=== PATIENT | female | born 1980 | race American Indian/Alaskan Native ===

== ENCOUNTER 2016-08-18 17:42 | Emergency (ER) | payer SELFPAY ==
[2016-08-18 20:01] VITALS: BP 112/70
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
== END 2016-08-18 21:30 | disposition left against medical advice (07) ==
LOC: ED 17:42
DX: M25.562 Pain in left knee (principal); Z53.21 Procedure and treatment not carried out due to patient leaving prior to being seen by health care provider

== ENCOUNTER 2017-02-05 12:47 | Emergency (ER) | payer SELFPAY ==
[2017-02-05 14:59] VITALS: BP 113/55
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
== END 2017-02-05 15:59 | disposition home or self-care (01) ==
LOC: ED 12:47
DX: R07.89 Other chest pain (principal); M54.6 Pain in thoracic spine
CPT/HCPCS: 99282

== ENCOUNTER 2017-08-17 15:08 | Outpatient (CLI) | payer MEDICAID ==
[2017-08-17] MEDS ORDERED: LACTATED RINGERS 500 ML IV ONE (15:28)
[2017-08-17 16:27] LABS: Bacteria,Urine 1+ /HPF (Negative); Bilirubin,Urine NEG (Negative); Blood,Urine NEG (Negative); Color,Urine Yellow (Yellow); Mucus,Urine FEW /HPF; Protein,Urine <15 mg/dL mg/dL (Negative); Urobilinogen,Urine < 2.0 mg/dL (<2.0); WBC,Urine < 1.0 /HPF (0.0-6.0)
[2017-08-17] MEDS ORDERED: BRETHINE SUB-Q ONE (17:38)
[2017-08-17 18:14] VITALS: BP 105/59
[2017-08-17 19:37] LABS: Hematocrit 40.3 % (30.3-42.9); Mean Corpuscular HGB Conc 35 % (30-34); Mean Corpuscular Hemoglobin 31 pg (28-32); Mean Corpuscular Volume 89 fl (79-97); Platelet Count 134 K/mm3 (140-440); Red Blood Count 4.51 M/mm3 (3.65-5.03); Red Cell Distribution Width 14.1 % (13.2-15.2)
[2017-08-17 19:53] LABS: Alanine Aminotransferase 12 units/L (7-56); Uric Acid 4.3 mg/dL (3.5-7.6)
== END 2017-08-17 20:12 | disposition home or self-care (01) ==
LOC: TRG 15:08
PROVIDERS: ATTEND Obstetrics & Gynecology
DX: O47.03 False labor before 37 completed weeks of gestation, third trimester (principal); Z3A.34 34 weeks gestation of pregnancy
CPT/HCPCS: 36415; 59025; 81001; 82565; 83615; 84450; 84460; 84550; 85027; 96360; 96372; J3105

== ENCOUNTER 2017-08-23 15:29 | Inpatient (IN) | payer MEDICAID ==
[2017-08-23] MEDS ORDERED: POLYCILLIN/NS 2 GM/100 ML 2 GM/100 ML BAG IV NR (15:45)
[2017-08-23] MEDS ORDERED: CELESTONE SOLUSPAN IM NR (15:45)
[2017-08-23] MEDS ORDERED: BRETHINE SUB-Q PRN (15:51)
[2017-08-23] MEDS ORDERED: XYLOCAINE 2% INFILTRATI ONE (15:51)
[2017-08-23] MEDS ORDERED: MINERAL OIL PO PRN (15:51)
[2017-08-23] MEDS ORDERED: ePHEDrine SULFATE IV PRN (15:51)
[2017-08-23] MEDS ORDERED: PITOCin/NS 20 UNIT/1000ML DRIP 20 UNITS/1,000 ML BAG IV SCH (16:00)
[2017-08-23] MEDS ORDERED: LACTATED RINGERS 1,000 ML IV SCH ×2 (16:00)
[2017-08-23] MEDS ORDERED: SUBLIMAZE IV PRN ×2 (16:16→17:41)
[2017-08-23] MEDS ORDERED: POLYCILLIN/NS 2 GM/100 ML 2 GM/100 ML BAG IV ONE (16:16)
[2017-08-23] MEDS ORDERED: ZOFRAN IV PRN (16:16)
[2017-08-23 16:36] LABS: Hematocrit 40.2 % (30.3-42.9); Hemoglobin 13.5 gm/dl (10.1-14.3); Mean Corpuscular HGB Conc 34 % (30-34); Mean Corpuscular Hemoglobin 30 pg (28-32); Mean Corpuscular Volume 90 fl (79-97); Platelet Count 131 K/mm3 (140-440); Red Blood Count 4.46 M/mm3 (3.65-5.03); Red Cell Distribution Width 14.2 % (13.2-15.2)
[2017-08-23] MEDS ORDERED: CELESTONE SOLUSPAN IM SCH (17:00)
--- NOTE | 2017-08-23 17:05 | History and Physical Report ---
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 of genital herpes: no Rash, Viral, or Febrile illness since last LMP? no Varicella/Chicken Pox Status: Previous Disease Genetic History ADVANCED MATERNAL AGE Congenital Heart Defect: Mom: no Nasreen Disease: Mom: no Thalassemia Mom: no Neural Tube Defect Mom: no Down's Syndrome Mom: no José-Sachs Mom: no Sickle Cell Disease/Trait Mom: no Hemophilia Mom: no Muscular Dystrophy Mom: no Cystic Fibrosis Mom: no Carina Chorea Mom: no Mental Retardation Mom: no Fragile X Mom: no Other Genetic/Chromosomal Disorder Mom: no Child w/other defect Mom: no Enviromental Exposures Xray Exposure: no Medication, drug, or alcohol use since LMP: no Chemical/Other Exposure: no Exposure to Cat Liter: no Hx of Parvovirus (Fifth Disease): no Occupational Exposure to Children: none Active Medications (reviewed today): ZOFRAN ODT 8 MG ORAL TABLET DISINTEGRATING (ONDANSETRON) 1 po q12hrs prn Current Allergies (reviewed today): No known allergies Past History - Obstetrical History Expected Date of Delivery: 09/23/17 Actual Gestation: 35 Week(s) 4 Day(s) : 2 Para: 1 Hx # Term Pregnancies: 1 Number of Living Children: 1 Medications and Allergies Allergies Allergy/AdvReac Type Severity Reaction Status Date / Time No Known Allergies Allergy Verified 08/18/16 19:57 Active Meds: Active Medications Betamethasone Acet/Betameth SodPhos (Celestone Soluspan) 12 mg IM Q24HR KAYLA Ephedrine Sulfate (Ephedrine Sulfate) 10 mg IV Q2M PRN PRN Reason: Hypotension Fentanyl (Sublimaze) 100 mcg IV Q2H PRN PRN Reason: Labor Pain Ampicillin Sodium (Polycillin/Ns 2 Gm/100 Ml) 2 gm in 100 mls @ 100 mls/hr IV ONCE NR Stop: 08/23/17 18:00 Lactated Ringer's (Lactated Ringers) 1,000 mls @ 125 mls/hr IV DIRECT KAYLA Ampicillin Sodium (Ampicillin/Ns 1 Gm/50 Ml) 1 gm in 50 mls @ 100 mls/hr IV Q4H KAYLA; Protocol Lactated Ringer's (Lactated Ringers) 1,000 mls @ 125 mls/hr IV DIRECT KAYLA Oxytocin/Sodium Chloride (Pitocin/Ns 20 Unit/1000ml Drip) 20 units in 1,000 mls @ 125 mls/hr IV DIRECT KAYLA Mineral Oil (Mineral Oil) 30 ml PO QHS PRN PRN Reason: Constipation Ondansetron HCl (Zofran) 4 mg IV Q8H PRN PRN Reason: Nausea And Vomiting Terbutaline Sulfate (Brethine) 0.25 mg SUB-Q ONCE PRN PRN Reason: Hyperstimulation/Hypertonicity - Vital Signs Vital signs: Vital Signs Temp Pulse Resp BP Pulse Ox 98.3 F 84 20 122/68 98 08/23/17 15:37 08/23/17 15:37 08/23/17 15:37 08/23/17 15:37 08/23/17 15:37 Temp Pulse Resp BP Pulse Ox 98.3 F 74 20 116/62 97 08/23/17 15:37 08/23/17 16:51 08/23/17 15:37 08/23/17 16:50 08/23/17 16:51 - Physical Exam Breasts: Positive: deferred Cardiovascular: Regular rate, Normal S1, Normal S2 Lungs: Positive: Clear to auscultation, Normal air movement Abdomen: Positive: normal appearance, soft, normal bowel sounds. Negative: distention, tenderness Genitourinary (Female): Positive: normal external genitalia, normal perenium Vulva: both: normal Vagina: Positive: normal moisture. Negative: discharge Cervix: Negative: lesion, discharge Uterus: Positive: normal size, normal contour Adnexa: both: normal Anus/Rectum: Positive: normal perianal skin, heme negative. 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 GBS unknown HBsAg Screen Negative Negative *1 RPR Non Reactive Non Reactive *2 Rubella Antibodies, IgG 2.08 index Immune >0.99 *3 Non-immune <0.90 Equivocal 0.90 - 0.99 Immune >0.99 ABO Grouping O *4 Rh Factor Negative *5 Pt received Rhogam 07-04-17 Please note: Prior records for this patient's ABO / Rh type are not available for additional verification. Antibody Screen Negative Negative *6 WBC [H] 17.4 x10E3/uL 3.4-10.8 *7 RBC 3.97 x10E6/uL 3.77-5.28 *8 Hemoglobin 12.5 g/dL 11.1-15.9 *9 Hematocrit 36.4 % 34.0-46.6 *10 MCV 92 fL 79-97 *11 MCH 31.5 pg 26.6-33.0 *12 MCHC 34.3 g/dL 31.5-35.7 *13 RDW 14.1 % 12.3-15.4 *14 Platelets 213 x10E3/uL 150-379 *15 Neutrophils 80 % Not Estab. *16 Lymphs 11 % Not Estab. *17 Monocytes 8 % Not Estab. *18 Eos 1 % Not Estab. *19 Basos 0 % Not Estab. *20 ! Immature Cells <No Reported Value> *21 Neutrophils (Absolute) [H] 13.7 x10E3/uL 1.4-7.0 *22 Lymphs (Absolute) 2.0 x10E3/uL 0.7-3.1 *23 Monocytes(Absolute) [H] 1.4 x10E3/uL 0.1-0.9 *24 Eos (Absolute) 0.2 x10E3/uL 0.0-0.4 *25 Baso (Absolute) 0.0 x10E3/uL 0.0-0.2 *26 ! Immature Granulocytes 0 % Not Estab. *27 ! Immature Grans (Abs) 0.0 x10E3/uL 0.0-0.1 *28 ! NRBC <No Reported Value> *29 Hematology Comments: <No Reported Value> *30 Tests: (2) HB Solu + Rflx Frac (317530) Hemoglobin (Hgb) Solubility Negative Negative *31 Tests: (3) Panel 979513 ([id number]) HIV Screen 4th Generation wRfx Non Reactive Non Reactive *32 Tests: (4) HCV Ab w/Rflx to Verification (772282) ! HCV Ab <0.1 s/co ratio 0.0-0.9 *33 Tests: (5) Comment: (870223) ! Comment: SPRCS *34 Non reactive HCV antibody screen is consistent with no HCV infection, unless recent infection is suspected or other evidence exists to indicate HCV infection. Tests: (6) Urine Culture, Routine ([id number]) Urine Culture, Routine Final report *35 Tests: (7) Result ([id number]) ! Result 1 No growth Assessment and Plan - Patient Problems (1) Premature rupture of membranes (PROM), onset of labor after 24 hours, antepartum, Onset Date: ~08/23/17 Current Visit: Yes Status: Acute Qualifiers: PROM gestational age: -third trimester Qualified Code(s): O42.113 - premature rupture of membranes, onset of labor more than 24 hours following rupture, third trimester Plan to address problem: Pt states her water broke @ 1420 today and has been clear. Clear fluid was noted on exam in Triage by charge nurse. consulted. Admit BMZ X 2 doses, antibiotics, monitoring for labor. All orders in EMR
[2017-08-23] MEDS: AMPICILLIN/NS 1 GM/50 ML 1 GM/50 ML BAG IV SCH (21:05)
--- NOTE | 2017-08-23 22:40 | Progress Note ---
Assessment and Plan - Patient Problems (1) 35 weeks gestation of Current Visit: Yes Status: Acute (2) Premature rupture of membranes (PROM), onset of labor after 24 hours, antepartum, Onset Date: ~08/23/17 Current Visit: Yes Status: Acute Qualifiers: PROM gestational age: -third trimester Qualified Code(s): O42.113 - premature rupture of membranes, onset of labor more than 24 hours following rupture, third trimester Plan to address problem: -GBS unknown just done yesterday 08/22/17. Cont antibx -currently margarito -no S/Sx of chorio currently (3) Rh negative status during Current Visit: Yes Status: Acute Subjective - Subjective Date of service: 08/23/17 Principal diagnosis: 35 4/7 wks with PROM @ 1430pm on 08/23/17 Interval history: Pt still c/o LOF and feeling the contractions. She does not desire pain meds at this time. Patient reports: loss of fluid, movement normal, contractions, no new complaints Objective - Vital Signs Vital Signs: Vital Signs - 12hr 08/23/17 08/23/17 08/23/17 15:37 15:42 15:47 Temperature 98.3 F Pulse Rate 81 82 80 Respiratory 20 Rate Blood Pressure Blood Pressure 122/68 [Right] O2 Sat by Pulse 98 97 98 Oximetry 08/23/17 08/23/17 08/23/17 15:52 15:57 16:02 Temperature Pulse Rate 80 77 81 Respiratory Rate Blood Pressure Blood Pressure [Right] O2 Sat by Pulse 99 98 97 Oximetry 08/23/17 08/23/17 08/23/17 16:07 16:12 16:17 Temperature Pulse Rate 75 86 82 Respiratory Rate Blood Pressure Blood Pressure [Right] O2 Sat by Pulse 99 99 99 Oximetry 08/23/17 08/23/17 08/23/17 16:22 16:27 16:41 Temperature Pulse Rate 82 87 86 Respiratory Rate Blood Pressure Blood Pressure [Right] O2 Sat by Pulse 97 96 99 Oximetry 08/23/17 08/23/17 08/23/17 16:46 16:50 16:51 Temperature 98.3 F Pulse Rate 74 76 74 Respiratory 18 Rate Blood Pressure 116/62 Blood Pressure 116/62 [Right] O2 Sat by Pulse 100 98 97 Oximetry 08/23/17 08/23/17 08/23/17 18:52 18:57 19:02 Temperature Pulse Rate 87 72 86 Respiratory Rate Blood Pressure Blood Pressure [Right] O2 Sat by Pulse 100 100 100 Oximetry 08/23/17 08/23/17 08/23/17 19:07 19:12 19:17 Temperature Pulse Rate 77 71 82 Respiratory Rate Blood Pressure Blood Pressure [Right] O2 Sat by Pulse 100 100 100 Oximetry 08/23/17 08/23/17 08/23/17 19:22 19:27 19:32 Temperature Pulse Rate 83 75 90 Respiratory Rate Blood Pressure Blood Pressure [Right] O2 Sat by Pulse 100 99 99 Oximetry 08/23/17 08/23/17 08/23/17 19:37 19:42 19:47 Temperature Pulse Rate 71 75 75 Respiratory Rate Blood Pressure Blood Pressure [Right] O2 Sat by Pulse 100 99 100 Oximetry 08/23/17 08/23/17 08/23/17 19:52 19:57 22:30 Temperature Pulse Rate 75 69 63 Respiratory Rate Blood Pressure 101/57 Blood Pressure [Right] O2 Sat by Pulse 100 100 Oximetry - Exam Cervical Dilatation: 1.5 (clear fluid noted on exam) Cervical Effacement Percentage: 50 station: -2 Uterine Contraction Pattern: Regular Uterine Tone Measurement Phase: Resting Uterine Contraction Intensity: Mild Extremities: normal - Labs Labs: Abnormal Labs 08/23/17 16:15 WBC 17.6 H Plt Count 131 L Laboratory Results - last 24 hr 08/23/17 08/23/17 16:15 16:15 WBC 17.6 H RBC 4.46 Hgb 13.5 Hct 40.2 MCV 90 MCH 30 MCHC 34 RDW 14.2 Plt Count 131 L Blood Type O NEGATIVE Antibody Screen Positive Antibody Identification Anti-D (Passively Aquired)
[2017-08-24] MEDS: AMPICILLIN/NS 1 GM/50 ML 1 GM/50 ML BAG IV SCH ×2 (01:07→05:38)
[2017-08-24] MEDS ORDERED: SUBLIMAZE ONE ×2 (03:17→05:55)
[2017-08-24] MEDS ORDERED: PITOCin/NS 20 UNIT/1000ML DRIP 0 MILLIUNITS/0 ML BAG IV ONE (06:00)
[2017-08-24] MEDS ORDERED: PITOCin/NS 30 UNIT/500ML 30,000 MILLIUNITS/500 ML BAG IV ONE (07:35)
[2017-08-24] MEDS ORDERED: XYLOCAINE 2% INFILTRATI ONE (07:50)
[2017-08-24] MEDS ORDERED: PITOCin/NS 30 UNIT/500ML 30 UNITS/500 ML BAG IV SCH (08:00)
--- NOTE | 2017-08-24 08:03 | Procedure Note ---
OB Delivery Note - Delivery Date of Delivery: 08/24/17 ( male) Elder Counselor: ORLANDO GAMBOA Estimated blood loss: other (350) - Vaginal Delivery presentation: vertex Delivery position: OA Intrapartum events: labor-<37 weeks, PROM->1hr before delivery Delivery induction: none Delivery monitor: external FHT, external uterine Route of delivery: Delivery placenta: spontaneous Delivery cord: 3 umbilical vessels Episiotomy: none Delivery laceration: 1st degree (not repaired - patient would not tolerate repair and agreed to leave unrepaired) Anesthesia: none Delivery comments: Male delivered head, shoulders and body all in one push. Infant crying and vigorous, placed skin to skin. 3 vessel cord clamped and cut, cord blood collected. Placenta delivered intact and complete (sent to path d/t prematurity ). Pitocin IM d/t IV no longer being patent. 1st degree issa laceration left unrepaired - pt could not tolerate any effort to repair including lidocaine injection. pt agreed to leave unrepaired. EBL 350, apgars 8/9, wt 5#15oz. Mother and remain LDR stable. - Infant A at 1 minute: 8 at 5 minutes: 9 Infant Gender: Male (5#15)
[2017-08-24] MEDS ORDERED: TUCKS PAD TP PRN (12:31)
[2017-08-24] MEDS ORDERED: SODIUM CHLORIDE FLUSH SYRINGE 10 ML IV NR (12:31)
[2017-08-24] MEDS ORDERED: DULCOLAX PR PRN (12:31)
[2017-08-24] MEDS ORDERED: DERMOPLAST TP PRN (12:31)
[2017-08-24] MEDS ORDERED: PHENERGAN PO PRN (12:31)
[2017-08-24] MEDS ORDERED: MILK OF MAGNESIA PO PRN (12:31)
[2017-08-24] MEDS ORDERED: TYLENOL PO PRN (12:31)
[2017-08-24] MEDS ORDERED: LANSINOH TP PRN (12:31)
[2017-08-24] MEDS ORDERED: BENADRYL PO PRN (12:31)
[2017-08-24] MEDS ORDERED: ZOFRAN IV PRN (12:31)
[2017-08-24] MEDS ORDERED: PITOCin/NS 20 UNIT/1000ML DRIP 20 UNITS/1,000 ML BAG IV SCH (12:31)
[2017-08-24] MEDS: MOTRIN PO SCH ×2 (15:13→22:23)
[2017-08-24 21:18] LABS: Hematocrit 38.8 % (30.3-42.9)
[2017-08-24] MEDS: FEOSOL PO SCH (22:23)
[2017-08-24] MEDS: COLACE PO SCH (22:23)
[2017-08-25] MEDS: MOTRIN PO SCH ×4 (00:30→17:34)
[2017-08-25] MEDS ORDERED: BOOSTRIX IM ONE (06:00)
--- NOTE | 2017-08-25 09:50 | Discharge Summary ---
Providers - Providers Date of Admission: 08/23/17 16:51 Date of discharge: 08/25/17 (desires d/c home today) Attending physician: DAVID PHILIP Primary care physician: DAVID PHILIP Hospitalization Reason for admission: Labor/SROM Condition: Good Pertinent studies: post delivery H&H 13.0/38.8 Procedures: vaginal delivery Hospital course: uncomplicated vaginal delivery and course Disposition: DC-01 TO HOME OR SELFCARE - Discharge Diagnoses (1) (spontaneous vaginal delivery) Status: Acute Core Measure Documentation - Palliative Care Palliative Care/ Comfort Measures: Not Applicable - Core Measures Any of the following diagnoses?: none Exam - Constitutional Vitals: Temp Pulse Resp BP Pulse Ox 98.4 F 61 18 102/63 98 08/25/17 09:42 08/25/17 09:42 08/25/17 09:42 08/25/17 09:42 08/25/17 09:42 General appearance: Present: no acute distress, well-nourished - EENT Eyes: Present: PERRL ENT: hearing intact, clear oral mucosa - Neck Neck: Present: supple, normal ROM - Respiratory Respiratory effort: normal Respiratory: bilateral: CTA - Cardiovascular Heart Sounds: Present: S1 & S2. Absent: rub, click - Extremities Extremities: pulses symmetrical, No edema Peripheral Pulses: within normal limits - Abdominal General gastrointestinal: Present: soft, non-tender, non-distended, normal bowel sounds Female genitourinary: Present: normal - Integumentary Integumentary: Present: clear, warm, dry - Musculoskeletal Musculoskeletal: gait normal, strength equal bilaterally - Psychiatric Psychiatric: appropriate mood/affect, intact judgment & insight - Neurologic Neurologic: CNII-XII intact, moves all extremities - Additional findings Additional findings: lochia scant, fundus firm @ U, H&H stable, VSSAF, bottle feeding Plan Activity: no restrictions Diet: regular Follow up with: DAVID PHILIP MD [Primary Care Provider] - 7 Days (Congratulations! Please call [phone] to schedule your son's circumcision in 1 week and your visit in 6 weeks. Bring EMLA cream to your son's appointment and await further instructions. Please call for any questions or concerns.) Prescriptions: Ibuprofen [Motrin 800 MG tab] 800 mg PO Q8HR PRN #30 tablet PRN Reason: Pain Lidocain2.5%/Prilocai2.5% [Emla] 5 gm TP ONCE PRN #1 tube PRN Reason: Pain
[2017-08-25] MEDS: FEOSOL PO SCH ×3 (11:53→23:44)
[2017-08-25] MEDS: PRENATAL VITAMIN PO SCH ×2 (11:53→11:55)
[2017-08-25] MEDS: COLACE PO SCH ×3 (11:54→23:44)
[2017-08-26] MEDS: MOTRIN PO SCH ×2 (00:30→06:30)
[2017-08-26 09:13] VITALS: BP 94/52
== END 2017-08-26 11:00 | disposition home or self-care (01) | DRG 775 ==
LOC: TRG 15:29 → LD 16:51 → OB 08-24 11:32
PROVIDERS: ADMIT Obstetrics & Gynecology; ATTEND Obstetrics & Gynecology
PROC: 10E0XZZ Delivery of Products of Conception, External Approach (ICD-10-PCS; principal; 2017-08-24)
PROC: 3E0234Z Introduction of Serum, Toxoid and Vaccine into Muscle, Percutaneous Approach (ICD-10-PCS; 2017-08-25)
PROC: 30233S1 Transfusion of Nonautologous Globulin into Peripheral Vein, Percutaneous Approach (ICD-10-PCS; 2017-08-25)
DX: O42.113 Preterm premature rupture of membranes, onset of labor more than 24 hours following rupture, third trimester (principal); Z3A.35 35 weeks gestation of pregnancy; Z37.0 Single live birth; Z23 Encounter for immunization; O70.0 First degree perineal laceration during delivery; Z29.13 Encounter for prophylactic Rho(D) immune globulin
CPT/HCPCS: 36415; 85014; 85018; 85027; 85461; 86592; 86850; 86870; 86900; 86901; 88307; J0290; J0702; J2590; J2790; J3010; J7120

== ENCOUNTER 2020-04-22 10:02 | Emergency (ER) | payer MEDICAID ==
[2020-04-22 10:13] VITALS: BP 123/99
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
== END 2020-04-22 10:20 | disposition home or self-care (01) ==
LOC: ED 10:02
DX: M79.18 Myalgia, other site (principal); Z79.1 Long term (current) use of non-steroidal anti-inflammatories (NSAID); Z79.899 Other long term (current) drug therapy; V49.49XA Driver injured in collision with other motor vehicles in traffic accident, initial encounter; Y93.89 Activity, other specified; Y92.410 Unspecified street and highway as the place of occurrence of the external cause; Y99.8 Other external cause status
CPT/HCPCS: 99282

== ENCOUNTER 2020-04-23 09:23 | Emergency (ER) | payer MEDICAID ==
[2020-04-23 09:29] VITALS: BP 127/64
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
== END 2020-04-23 10:41 | disposition left against medical advice (07) ==
LOC: ED 09:23
DX: R52 Pain, unspecified (principal); Z53.21 Procedure and treatment not carried out due to patient leaving prior to being seen by health care provider; V89.2XXA Person injured in unspecified motor-vehicle accident, traffic, initial encounter; Y93.89 Activity, other specified; Y92.410 Unspecified street and highway as the place of occurrence of the external cause; Y99.8 Other external cause status

== ENCOUNTER 2021-07-19 16:47 | Emergency (ER) | payer OTHER, MEDICAID ==
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
[2021-07-19 21:18] VITALS: BP 128/70
== END 2021-07-19 21:06 | disposition home or self-care (01) ==
LOC: ED 16:47
DX: S46.912A Strain of unspecified muscle, fascia and tendon at shoulder and upper arm level, left arm, initial encounter (principal); S86.912A Strain of unspecified muscle(s) and tendon(s) at lower leg level, left leg, initial encounter; V87.7XXA Person injured in collision between other specified motor vehicles (traffic), initial encounter; Y93.89 Activity, other specified; Y92.488 Other paved roadways as the place of occurrence of the external cause; Y99.8 Other external cause status
CPT/HCPCS: 99282